=== PATIENT | female | born 1945 | race Caucasian/White ===

== ENCOUNTER 2022-03-12 08:11 | Outpatient (CLI) | payer MEDICARE, SELFPAY ==
--- NOTE | 2022-04-04 16:16 | WPDSLEEPSTUD ---
Sleep Study Date of Study: 03/12/22 Ordering Provider: Alfredo Weaver MD Interpreting Physician: Yolie Dillon DO Sleep Study Type: Polysomnogram Height: 1.55 m Weight: 74.843 kg Body Mass Index: 31.1 Neck Circumference (inches): 14.5 [place]: 4 Reason for Sleep Study Unrefreshing sleep, daytime hypersomnia Sleep History The patient is a 76-year-old female with hypertension, hyperlipidemia, asthma, hearing loss, seasonal allergies and history of stroke that had a sleep study ordered by her ENT physician for evaluation of sleep apnea. The patient denies awakening from sleep short of breath. She denies awakening at night with heartburn, belching or cough. She frequently snores loud enough that others complain. She denies having trouble sleeping when she has a cold. She denies waking up gasping for air throughout the night. She occasionally has breathing problems at night observed by herself or others. She denies sweating excessively at night. She denies having heart palpitations or irregular heartbeats during the night. She occasionally falls asleep during the day but never while driving. She denies sleep paralysis and cataplexy. She denies having trouble at school or work due to sleepiness. She occasionally experiences vivid dreamlike scenes upon awakening. She denies having nightmares. She rarely remembers her dreams. She rarely has thoughts racing through her mind. She denies feeling sad, depressed and anxious. She denies having muscular tension. She denies noticing parts of her body jerk. She denies kicking during the night. She denies having crawling and aching feelings in her legs as well as leg pain during the night. she occasionally grinds her teeth during sleep but denies awakening with morning jaw pain. She currently wears a mouth guard. He denies being bothered by pain during the day and being awakened by pain during the night. She occasionally wakes up feeling stiff in the morning. She rarely wakes up with sore or achy muscles. She denies waking up with pain in the neck, spine and other joints. She goes to bed between 11:00 p.m. and midnight on both weekdays and weekends. It takes her 5-10 minutes to fall asleep. She wakes up 3 times throughout the night to use the restroom or look at the clock. It takes her a few minutes to fall back asleep. She wakes up between 7-9 a.m. on both weekdays and weekends. She typically gets 7 8 hours of sleep per night. She does not stay in bed after waking up in the morning. She currently lives alone. He does not consume any caffeinated beverages within 2 hours of bedtime. She does not engage in physical exercise before bedtime. She denies reading and watching television before falling asleep. She denies taking naps in the afternoon or the evening. She drinks 1-2 cups of coffee per day. She drinks 2-3 alcoholic beverages per week. She quit smoking cigarettes 40 years ago. She denies recreational drug use. [facility] Past Medical History Medical History HTN (hypertension) Hyperlipidemia Social History Social History Smoking status: Former smoker Alcohol intake: current Drinks per week: 3 Substance use: never Living arrangements: alone Occupation/Education: retired Gender identity (if verbalized by the patient): Female Sleep Procedure This test was performed using the [employer] System multiple channel system including EOG, EEG, submental EMG, EKG, nasal and oral airflow using thermistors and nasal pressure sensors, chest and abdominal belts for body position data, and pulse oximetry. Video monitoring was also performed. The study was scored using [facility] guidelines. Sleep Architecture The patient had a total recording time of 428.2 minutes and total sleep time of 269.5 minutes. The sleep efficiency was 62.9%. Sleep latency was 57.7 minute
[2022-04-04 23:04] VITALS: BMI 31.1
== END 2022-03-13 06:40 | disposition home or self-care (01) ==
PROVIDERS: Visit Provider Otolaryngology
DX: G47.33 Obstructive sleep apnea (adult) (pediatric) (principal)
CPT/HCPCS: 95810

== ENCOUNTER 2025-05-09 01:11 | Day surgery (SDC) | payer MEDICARE, SELFPAY ==
[2025-04-26 09:59] VITALS: BMI 32.9
--- OUTSIDE RECORDS SUMMARY | 2025-05-09 01:14 | XMS_ITS | Clinical Summary ---
Author Organization [facility] Address [address] [place] [address] Care Team Providers Care Commercial Door Installer Name Role Phone Geronimo Booth MD Primary Care Provider Source Comments [facility],non-owned Affiliates and Associated Physician Practices is amultiple site organization consisting of ambulatory clinics and hospital sitesin [place], [place], [place] and [place]. This disclosure is being madepursuant to the Care Everywhere program and may not contain all information available regarding this patient. Last updated 18.[facility] [employer] Allergies Active Allergy Reactions Criticality Noted Date Comments Urticaria,Unknown 10/18/2009 Medications * Be aware that medications may not be up to date on this document. Alwaysverify current medications with the patient. atenolol (TENORMIN) 50 MG tablet Take 50 mg by mouth daily. Active triamterene-hydr ochlorothiazide (MAXZIDE-25) 37.5-25 MG tablet Take 1 Tab by mouth daily. Active amlodipine (NORVASC) 5 MG tablet Take 5 mg by mouth daily. Active simvastatin (ZOCOR) 20 MG tablet Take 20 mg by mouth at bedtime. Active alendronate (FOSAMAX) 35 MG tablet Take 35 mg by mouth every 7 days before meal. Active Social History Tobacco Use Types Packs/Day Years Used Date Smoking Tobacco: Never Alcohol Use Standard Drinks/Week Comments Yes 0 (1 standard drink = 0.6 oz pur e alcohol) Comments Unknown Sex and Gender Information Value Date Recorded Sex Assigned at Not on file Legal Sex Female 8:26 AM ASSET PROTECTION LEAD Gender Identity Not on file Sexual Orientation Not on file Last Filed Vital Signs Vital Sign Reading Time Taken Comments Blood Pressure 122/58 11/16/2009 8:01 AM ASSET PROTECTION LEAD Pulse 57 11/16/2009 8:01 AM ASSET PROTECTION LEAD Temperature 36.6 C (97.8 F) 11/16/2009 8:01 AM ASSET PROTECTION LEAD Respiratory Rate 16 11/16/2009 8:01 AM ASSET PROTECTION LEAD Oxygen Saturation 96% 11/16/2009 8:01 AM ASSET PROTECTION LEAD Inhaled Oxygen Concentration - - Weight 71.9 kg (158 lb 9.6 oz) 11/16/2009 6:32 A M ASSET PROTECTION LEAD Height 154.9 cm (5' 1) 11/16/2009 6:32 AM ASSET PROTECTION LEAD Body Mass Index 29.97 11/16/2009 6:32 AM ASSET PROTECTION LEAD Plan of Treatment Health Maintenance Due Date Last Done Comments BONE DENSITY TESTING 1945 DTAP/TDAP/TD VACCINES (1 - Tdap) 1964 PNEUMOCOCCAL VACCINE 50+ (1 of 1 - PCV) 1995 ZOSTER VACCINE (1 of 2) 1995 Respiratory Syncytial Virus (RSV) Vaccine Pt: or over 60 yrs (1 - 1-dose 75+ series) 2020 COVID-19 VACCINE ( - 2023-2 5 season) 2024 DEPRESSION SCREENING 09/21/2024 INFLUENZA VACCINE (#1) 2025 HEPATITIS B VACCINE Aged Out No longe r eligible based on patient's age to complete this topic HIB VACCINE Aged Out No longer eligi ble based on patient's age to complete this topic HPV VACCINE Aged Out No longer eligi ble based on patient's age to complete this topic MENINGOCOCCAL (Group B) VACC INE SHARED DECISION-MAKING Aged Out No longer eligibl e based on patient's age to complete this topic MENINGOCOCCAL GROUPS A/C/Y/W VACCINE Aged Out No longer eligible b ased on patient's age to complete this topic Care Teams Commercial Door Installer Relationship Specialty Start Date End Date Geronimo Booth MD [address] [id number] PCP - General 10/19/09
[2025-05-09 10:13] VITALS: BP 164/63; PULSE 60; RESP 18; TEMP 36.2; O2SAT 95
--- NOTE | 2025-05-09 10:19 | WPDANESEPPF ---
Anes - Initial Pre Proc Eval Procedure: Operation Date: 05/09/25 11:30 Proposed Procedures p Diagnostic Colonoscopy - Kraig Kramer MD Date/Time: 05/09/25 10:19 Surgeon: Kraig Kramer MD Pre Op Diagnosis: Unspecified hemorrhoids Patient Data Age: 80 Gender: F Height: 1.55 m Weight: 75.8 kg Last Vital Signs Temp 36.2 C L 05/09/25 10:13 Pulse 60 05/09/25 10:13 Resp 18 05/09/25 10:13 BP 164/63 H 05/09/25 10:13 Pulse Ox 95 05/09/25 10:13 O2 Del Method Room Air 05/09/25 10:13 Allergies Allergy/AdvReac Type Severity Reaction Status Date / Time atropine Allergy Mild ITCHING Verified 05/09/25 10:12 hyoscyamine Allergy Mild ITCHING Verified 05/09/25 10:12 phenobarbital Allergy Mild ITCHING Verified 05/09/25 10:12 scopolamine Allergy Mild ITCHING Verified 05/09/25 10:12 Home Medications ?Medication ?Instructions ?Recorded ?Confirmed ?Type amlodipine 5 mg tablet (Norvasc) 5 mg PO DAILY 03/30/25 04/26/25 History aspirin 81 mg tablet 81 mg PO DAILY 03/30/25 04/26/25 History atenolol 50 mg tablet 50 mg PO DAILY 03/30/25 05/09/25 History calcium carbonate (Calcium 600) 600 mg PO BID 03/30/25 04/26/25 History cholecalciferol (vitamin D3) 25 25 mcg PO DAILY 03/30/25 04/26/25 History mcg (1,000 unit) capsule omega-3 fatty acids 1,000 mg 1,000 mg PO BID 03/30/25 04/26/25 History capsule potassium chloride 10 mEq 10 meq PO DAILY 03/30/25 04/26/25 History tablet,extended release (Klor-Con) simvastatin 20 mg tablet 20 mg PO DAILY 03/30/25 04/26/25 History triamterene 37.5 1 tablet PO QAM 03/30/25 04/26/25 History mg-hydrochlorothiazide 25 mg tablet Patient hx anesthesia problems: none Family hx anesthesia problems: none Results Review: All pre-operative results and documents have been reviewed as part of the pre-operative evaluation. [facility] Past Medical History Medical History (Updated 05/08/25 @ 13:54 by Tariq Ray DO) USHA (obstructive sleep apnea) Family history of colon cancer Hemorrhoids BRBPR (bright red blood per rectum) Hyperlipidemia HTN (hypertension) Social History Social History Years smoked: 12 Smoking status: Former smoker Tobacco type: cigarettes Alcohol intake: current Drinks per week: 3 Alcohol use details: occasionally Substance use: never Substance use type: does not use Living arrangements: with family Occupation/Education: retired Gender identity (if verbalized by the patient): Female Spiritual care concerns: No Anes - Eval Final PreProcedure Day of Procedure 05/09/25 10:19 Patient weight: obese Heart: regular rate and rhythm Lungs: clear to auscultation Airway: Mallampati scale class II Neurological: alert and oriented Last oral intake: >/= 8 hours ASA classification: III Emergent: no Anesthetic plan: proceed Anesthesia type and monitoring: general GIVS and standard monitoring Results Review: All pre-operative results and documents have been reviewed as part of the pre-operative evaluation. Informed Consent: The patient's anesthetic plan and its attendant risks and benefits were discussed with the patient/family/POA. Questions were solicited and answers provided to the satisfaction of the patient/family/POA.
[2025-05-09] MEDS: LACTATED RINGERS 1,000 ML 150 ML IV CONT (10:22)
--- NOTE | 2025-05-09 10:36 | PM.HPGS ---
History of Present Illness History of Present Illness Consent: Risks, benefits, and alternatives have been discussed and questions answered. Patient agrees to proceed with procedure. Chief complaint: Unspecified hemorrhoids Narrative: Soraida Rodas is a 80 year old female with last colonoscopy 2018, recently with hemorrhoids, sister had colon cancer. Review of Systems Review of Systems: All systems reviewed & are unremarkable except as noted in HPI and below PMFSH Past Medical History Medical History (Updated 05/08/25 @ 13:54 by Tariq Ray DO) USHA (obstructive sleep apnea) Family history of colon cancer Hemorrhoids BRBPR (bright red blood per rectum) Hyperlipidemia HTN (hypertension) Social History Social History Years smoked: 12 Smoking status: Former smoker Tobacco type: cigarettes Alcohol intake: current Drinks per week: 3 Alcohol use details: occasionally Substance use: never Substance use type: does not use Living arrangements: with family Occupation/Education: retired Gender identity (if verbalized by the patient): Female Spiritual care concerns: No Meds Home Medications and Allergies Home Medications ?Medication ?Instructions ?Recorded ?Confirmed ?Type amlodipine 5 mg tablet (Norvasc) 5 mg PO DAILY 03/30/25 04/26/25 History aspirin 81 mg tablet 81 mg PO DAILY 03/30/25 04/26/25 History atenolol 50 mg tablet 50 mg PO DAILY 03/30/25 05/09/25 History calcium carbonate (Calcium 600) 600 mg PO BID 03/30/25 04/26/25 History cholecalciferol (vitamin D3) 25 25 mcg PO DAILY 03/30/25 04/26/25 History mcg (1,000 unit) capsule omega-3 fatty acids 1,000 mg 1,000 mg PO BID 03/30/25 04/26/25 History capsule potassium chloride 10 mEq 10 meq PO DAILY 03/30/25 04/26/25 History tablet,extended release (Klor-Con) simvastatin 20 mg tablet 20 mg PO DAILY 03/30/25 04/26/25 History triamterene 37.5 1 tablet PO QAM 03/30/25 04/26/25 History mg-hydrochlorothiazide 25 mg tablet Allergies Allergy/AdvReac Type Severity Reaction Status Date / Time atropine Allergy Mild ITCHING Verified 05/09/25 10:12 hyoscyamine Allergy Mild ITCHING Verified 05/09/25 10:12 phenobarbital Allergy Mild ITCHING Verified 05/09/25 10:12 scopolamine Allergy Mild ITCHING Verified 05/09/25 10:12 Vital Signs Vital Signs - 24 hr 05/09/25 10:13 Temperature 97.2 F L Pulse Rate 60 Respiratory Rate 18 Blood Pressure 164/63 H Pulse Oximetry 95 Oxygen Delivery Room Air Exam Const: General: comfortable and no acute distress HENMT: Face/Nose/Sinus: Normal nares present Eyes: General: appearance normal, both eyes and all related structures Neck: Neck: no JVD Resp: Auscultation: clear to auscultation bilaterally Cardio: Rate: regular rate Rhythm: regular rhythm GI: Inspection: non-distended GI Palp: Yes Soft to palpation Skin: General skin exam: normal color Neuro: Speech: normal speech Extrem: General: normal to inspection Psych: Mental Status: mental status grossly normal Assessment and Plan Assessment and plan (1) Family history of colon cancer: Code(s): Z80.0 - Family history of malignant neoplasm of digestive organs Status: Acute Assessment and Plan: colonoscopy (2) Hemorrhoids: Code(s): K64.9 - Unspecified hemorrhoids Status: Acute
--- NOTE | 2025-05-09 10:48 | S_PTH ---
PATIENT: Soraida Rodas LOC: [facility]#:[id number] AGE/SX: 80/F ROOM: RE05/09/[address]: Kraig Kramer MD : 1945 BED: DIS: 05/09/2025 SPEC #: [id number] RECD: 05/09/25 11:19 STATUS: FILEMON REQ #: [id number] AURELIANO: 05/09/25 10:[address]: Kraig Kramer DEPT: [facility] Surgical RECD BY: Choco Penny Tissues: A - Colon Polypectomy Procedures: Hematoxylin and Eosin Stain Gross and Microscopic Level 4
[2025-05-09 10:51] VITALS: BP 105/38; PULSE 59; RESP 19; O2SAT 98
[2025-05-09 11:01] VITALS: BP 130/57; PULSE 62; RESP 20; O2SAT 100
[2025-05-09 11:11] VITALS: BP 125/49; PULSE 53; RESP 23; O2SAT 98
== END 2025-05-09 11:22 | disposition home or self-care (01) ==
PROVIDERS: Referring Provider Nurse Practitioner Family; Visit Provider Internal Medicine Gastroenterology
PROC: 0DJD8ZZ Inspection of Lower Intestinal Tract, Via Natural or Artificial Opening Endoscopic (ICD-10-PCS; CPT 45378; principal; 2025-05-09 11:30)
DX: K64.8 Other hemorrhoids (principal); K63.5 Polyp of colon; K57.30 Diverticulosis of large intestine without perforation or abscess without bleeding; E78.5 Hyperlipidemia, unspecified; I10 Essential (primary) hypertension; G47.33 Obstructive sleep apnea (adult) (pediatric); E66.9 Obesity, unspecified; Z68.31 Body mass index [BMI] 31.0-31.9, adult; Z79.82 Long term (current) use of aspirin; Z87.891 Personal history of nicotine dependence; Z80.0 Family history of malignant neoplasm of digestive organs
CPT/HCPCS: 45385; 88305; J2704; J7120